=== PATIENT | female | born 1975 | race Caucasian/White ===

== ENCOUNTER 2017-03-22 01:02 | Inpatient (IN) | payer BC ==
[~2017-03-22] VITALS: Ht 175.3 cm; Wt 78.2 kg
[2017-03-22] VITALS (13 sets, daily range): BP systolic 134–165; BP diastolic 85–114; PULSE 82–105; RESP 17–20; TEMP 97.2–99.4; O2SAT 95–99
[~2017-03-22 01:02] MED LIST: LISI10 PO; PANT20 PO; THIA100T PO; TRAM50 PO; ZOFR4TAB3 SL
[2017-03-22] MEDS ORDERED: IOHEXOL 350 MG/ML 10 ML VIAL (for RAD DIAG) IVCONTRAST ONE (01:03)
[2017-03-22] MEDS ORDERED: SODIUM CHLOR 0.9% 1000 ML INJ 1,000 ML IV SCH (01:39)
--- NOTE | 2017-03-22 01:44 | PD ---
HPI Chief Complaint: Abdominal Pain Time Seen by Provider: 01:34 Travel History International Travel<30 days: No Contact w/Intl Traveler<30days: No Traveled to known affect area: No History of Present Illness HPI The patient is a 41-year-old female who has a history of alcoholic pancreatitis who started with nausea and vomiting today. She denies any fever and she denies vomiting any blood. She was drinking 6-8 glasses of vodka daily. She called the [facility] hotline and they told her not to quit cold turkey so she decreased but did not cease the alcohol drinking. She complains of bilateral upper abdominal pain. PFSH Past Medical History Arthritis: Yes Asthma: No Heart Rhythm Problems: No Cancer: No Cardiovascular Problems: No High Cholesterol: No Chest Pain: No Congestive Heart Failure: No COPD: No Cerebrovascular Accident: No Diabetes: No Diminished Hearing: No Endocrine: Yes (pancreatitis) Gastrointestinal Disorders: Yes (pancreatitis) GERD: No Glaucoma: No Genitourinary: No Headaches: Yes Hepatitis: No Hiatal Hernia: No Hypertension: Yes Implanted Vascular Access Dvce: No Kidney Stones: No Musculoskeletal: Yes (herniated discs c6-c7) Neurologic: Yes (nerve damage) Psychiatric: No Reproductive: No Respiratory: Yes (CHRONIC BRONCHITIS) Immunizations Current: Yes Migraines: Yes Myocardial Infarction: No Pancreatitis: Yes Renal Failure: No Seizures: No Sleep Apnea: No Thyroid Disease: No Ulcer: No Tetanus Vaccination: > 5 Years Influenza Vaccination: No ?: Unknown : 1 Para: 1 Past Surgical History Abdominal Surgery: No Appendectomy: No Cardiac Surgery: No Cholecystectomy: No Ear Surgery: No Endocrine Surgery: No Eye Surgery: No Genitourinary Surgery: No Gynecologic Surgery: Yes (hysterectomy) Hysterectomy: Yes Neurologic Surgery: No Oral Surgery: Yes (MOUTH INFECTION) Pacemaker: No Thoracic Surgery: No Other Surgery: Yes Social History Alcohol Use: Yes (3-4 drinks daily) Tobacco Use: Yes (1 PPD) Substance Use: Yes (marijuana once in a while, etoh) Allergies-Medications (Allergen,Severity, Reaction): Coded Allergies: promethazine (Unverified Adverse Reaction, Mild, DOESN'T LIKE THE WAY IT MAKES HER FEEL, 03/22/17) Reported Meds & Prescriptions Reported Meds & Active Scripts Active Zofran ODT (Ondansetron HCl) 4 Mg Tab 4 Mg SL Q6H PRN FOR NAUSEA/VOMITING Vitamin B1 (Thiamine HCl) 100 Mg Tab 100 Mg PO DAILY 30 Days Prinivil 10 mg (Lisinopril) 10 Mg Tab 10 Mg PO DAILY 30 Days Protonix (Pantoprazole Sodium) 20 Mg Tab 20 Mg PO DAILY Ultram (Tramadol HCl) 50 Mg Tab 1 Tab PO Q6HR FOR PAIN Review of Systems Except as stated in HPI: all other systems reviewed are Neg Physical Exam Narrative GENERAL: The patient is alert, oriented 3 in moderate to severe distress with her bilateral upper abdominal pain. Her vital signs show blood pressure 165/97 but otherwise normal. She does appear to be mildly dehydrated. She does not appear to be clinically intoxicated. She answers questions quickly and appropriately. SKIN: Focused skin assessment warm/dry. HEAD: Atraumatic. Normocephalic. EYES: Pupils equal and round. No scleral icterus. No injection or drainage. ENT: No nasal bleeding or discharge. Mucous membranes pink and moist. NECK: Trachea midline. No JVD. CARDIOVASCULAR: Regular rate and rhythm. No murmur appreciated. RESPIRATORY: No accessory muscle use. Clear to auscultation. Breath sounds equal bilaterally. GASTROINTESTINAL: Abdomen soft, non-tender, nondistended. Hepatic and splenic margins not palpable. MUSCULOSKELETAL: No obvious deformities. No clubbing. No cyanosis. No edema. NEUROLOGICAL: Awake and alert. No obvious cranial nerve deficits. Motor grossly within normal limits. Normal speech. PSYCHIATRIC: Appropriate mood and affect; insight and judgment normal. Data Data Last Documented VS Vital Signs Date Time Temp Pulse Resp B/P (MAP) Pulse Ox O2 Delivery O2 Flow Rate FiO2 03/22/17 01:51 99.4 85 20 159/103 (121) 98 Orders Orders Complete Blood Count With Diff (03/22/17 01:39) Comprehensive Metabolic Panel (03/22/17 01:39) Lipase (03/22/17 01:39) Urinalysis - C+S If Indicated (03/22/17 01:39) Ct Abd/Pel W Iv Contrast(Rout) (03/22/17 01:39) Iv Access Insert/Monitor (03/22/17 01:39) Ecg Monitoring (03/22/17 01:39) Oximetry (03/22/17 01:39) Ondansetron Inj (Zofran Inj) (03/22/17 01:45) Sodium Chlor 0.9% 1000 Ml Inj (Ns 1000 M (03/22/17 01:39) Sodium Chloride 0.9% Flush (Ns Flush) (03/22/17 01:45) Electrocardiogram (03/22/17 01:39) Hydromorphone Pf Inj (Dilaudid Pf Inj) (03/22/17 01:45) Pantoprazole Inj (Protonix Inj) (03/22/17 02:00) Famotidine Inj (Pepcid Inj) (03/22/17 02:00) Alcohol (Ethanol) (03/22/17 01:30) Iohexol 350 Inj (Omnipaque 350 Inj) (03/22/17 01:03) Ondansetron Inj (Zofran Inj) (03/22/17 02:30) Metoclopramide Inj (Reglan Inj) (03/22/17 03:00) Labs Laboratory Tests Test 03/22/17 01:30 White Blood Count 7.9 TH/MM3 Red Blood Count 4.47 MIL/MM3 Hemoglobin 13.6 GM/DL Hematocrit 39.2 % Mean Corpuscular Volume 87.6 FL Mean Corpuscular Hemoglobin 30.3 PG Mean Corpuscular Hemoglobin Concent 34.6 % Red Cell Distribution Width 12.5 % Platelet Count 158 TH/MM3 Mean Platelet Volume 7.7 FL Neutrophils (%) (Auto) 74.0 % Lymphocytes (%) (Auto) 17.6 % Monocytes (%) (Auto) 6.9 % Eosinophils (%) (Auto) 0.5 % Basophils (%) (Auto) 1.0 % Neutrophils # (Auto) 5.9 TH/MM3 Lymphocytes # (Auto) 1.4 TH/MM3 Monocytes # (Auto) 0.5 TH/MM3 Eosinophils # (Auto) 0.0 TH/MM3 Basophils # (Auto) 0.1 TH/MM3 CBC Comment DIFF FINAL Differential Comment Blood Urea Nitrogen 11 MG/DL Creatinine 0.76 MG/DL Random Glucose 99 MG/DL Total Protein 7.7 GM/DL Albumin 4.0 GM/DL Calcium Level 8.4 MG/DL Alkaline Phosphatase 63 U/L Aspartate Amino Transf (AST/SGOT) 60 U/L Alanine Aminotransferase (ALT/SGPT) 50 U/L Total Bilirubin 0.9 MG/DL Sodium Level 135 MEQ/L Potassium Level 3.1 MEQ/L Chloride Level 94 MEQ/L Carbon Dioxide Level 27.3 MEQ/L Anion Gap 14 MEQ/L Estimat Glomerular Filtration Rate 84 ML/MIN Lipase 656 U/L Ethyl Alcohol Level 113 MG/DL MDM Medical Decision Making Medical Screen Exam Complete: Yes Emergency Medical Condition: Yes Medical Record Reviewed: Yes Interpretation(s) The complete metabolic profile shows a GFR of 84, calcium 8.4, GOT of 60 with sodium 135, potassium 3.1 but is otherwise normal. The alcohol level is 113. The lipase is 656. The CT abdomen/pelvis with IV contrast shows pancreatic calcifications characteristic of chronic pancreatitis. There is no definite acute pancreatitis noted. There is gallbladder distention and extensive hepatic steatosis similar to prior exam in April 2016. Incidentally noted is a 1.7 cm left adnexal cyst. The CBC is normal. Differential Diagnosis Alcoholic pancreatitis, gallstone pancreatitis, colitis, small bowel obstruction , electrolyte disorder, dehydration, renal insufficiency, anemia Narrative Course Despite 8 mg of Zofran IV and 10 mg of Reglan the patient is still nauseated. It is clear that she cannot be treated at home successfully. The lipase is elevated. Also noted is a distended gallbladder but it is likely that alcohol is a cause of her pancreatitis. She also has a mild hypokalemia. The patient cannot even hold down ice chips. Physician Communication Physician Communication I discussed the patient with Dr. Gutierres, the patient will be admitted to her. Diagnosis Primary Impression: Pancreatitis, alcoholic, acute Additional Impressions: Intractable vomiting with nausea Intractable upper abdominal pain Admitting Information Admitting Physician Requests: Admit Abhi Lagunas MD Mar 22, 2017 01:44
[2017-03-22] MEDS ORDERED: ONDANSETRON HCL 4 MG/2 ML VIAL IVP ONE (01:45)
[2017-03-22] MEDS ORDERED: HYDROmorphone HCL PF 1 MG/ML VIAL IVS ONE (01:45)
[2017-03-22] MEDS ORDERED: SODIUM CHLORIDE 0.9% FLUSH 10 ML FLUSH IV FLUSH PRN ×3 (01:45→10:15)
[2017-03-22 01:49] LABS: AUTOMATED NEUTROPHIL # 5.9 TH/MM3 (1.8-7.7); BASOPHIL # 0.1 TH/MM3 (0-0.2); EOSINOPHIL % 0.5 % (0.0-4.0); HEMATOCRIT 39.2 % (35.0-46.0); HEMO FLAGS DIFF FINAL; LYMPH % 17.6 % (9.0-44.0); LYMPHOCYTE # 1.4 TH/MM3 (1.0-4.8); MEAN CELL VOLUME 87.6 FL (80.0-100.0); MEAN CORPUSCULAR HEMOGLOBIN 30.3 PG (27.0-34.0); MEAN CORPUSCULAR HGB CONC 34.6 % (32.0-36.0); MONO % 6.9 % (0.0-8.0); PLATELET COUNT 158 TH/MM3 (150-450); RED BLOOD COUNT 4.47 MIL/MM3 (4.00-5.30); RED CELL DISTRIBUTION WIDTH 12.5 % (11.6-17.2); WHITE BLOOD COUNT 7.9 TH/MM3 (4.0-11.0)
[2017-03-22 01:55] LABS: CHLORIDE 94 MEQ/L (98-107); POTASSIUM 3.1 MEQ/L (3.5-5.1); SODIUM (NA) 135 MEQ/L (136-145)
[2017-03-22 02:00] LABS: ANION GAP 14 MEQ/L (5-15); BICARBONATE 27.3 MEQ/L (21.0-32.0); BLOOD UREA NITROGEN 11 MG/DL (7-18)
[2017-03-22] MEDS ORDERED: FAMOTIDINE 20 MG/2 ML VIAL IV PUSH ONE (02:00)
[2017-03-22] MEDS ORDERED: PANTOPRAZOLE SODIUM 40 MG VIAL IVP ONE (02:00)
[2017-03-22 02:02] LABS: ALT (GPT) 50 U/L (10-53); AST (GOT) 60 U/L (15-37)
[2017-03-22 02:03] LABS: ALCOHOL 113 MG/DL (0-5); GLOMERULAR FILTRATION RATE 84 ML/MIN (>89)
[2017-03-22 02:04] LABS: TOTAL BILIRUBIN ADULT 0.9 MG/DL (0.2-1.0)
[2017-03-22 02:05] LABS: ALKALINE PHOSPHATASE 63 U/L (45-117)
[2017-03-22] MEDS ORDERED: ONDANSETRON HCL 4 MG/2 ML VIAL IV ONE (02:30)
--- NOTE | 2017-03-22 02:36 | RADRPT ---
EXAM DATE/TIME: 03/22/2017 02:22 [facility] COMPARISON: No previous studies available for comparison. INDICATIONS : Abdominal pain with nausea and vomiting. IV CONTRAST: 100 cc Omnipaque 350 (iohexol) IV ORAL CONTRAST: No oral contrast ingested. RADIATION DOSE: 12.06 CTDIvol (mGy) MEDICAL HISTORY : Pancreatitis. Hypertension. SURGICAL HISTORY : Hysterectomy. ENCOUNTER: Initial ACUITY: 1 day PAIN SCALE: 8/10 LOCATION: abdomen TECHNIQUE: Volumetric scanning of the abdomen and pelvis was performed. Using automated exposure control and ad justment of the mA and/or kV according to patient size, radiation dose was kept as low as reasonably achievable to obtain optimal diagnostic quality images. DICOM format image data is available electro nically for review and comparison. FINDINGS: Lung bases are clear. There is diffuse fatty infiltration of the liver. Spleen, adrenals, kidneys unr emarkable. Pancreatic calcifications are present characteristic of chronic pancreatitis. No definite acute inflammatory changes are seen No free fluid or free air. No bowel obstruction. 1.7 cm left ovarian cyst. CONCLUSION: 1. Pancreatic calcification characteristic of chronic pancreatitis. No definite acute pancreatitis. T here is gallbladder distention and extensive hepatic steatosis similar to prior examination in Octobe r 2016. 2. 1.7 cm left adnexal cyst.. Larry Jones MD on March 22, 2017 at 2:32 Board Certified Radiologist. This report was verified electronically.
[2017-03-22] MEDS ORDERED: METOCLOPRAMIDE HCL 10 MG/2 ML VIAL IVS ONE (03:00)
[2017-03-22] MEDS ORDERED: NALOXONE HCL 0.4 MG/ML AMP IV PRN (03:00)
[2017-03-22 03:21] LABS: BLOOD, URINE TRACE (NEG); GLUCOSE,URINE NEG (NEG); KETONE, URINE 80 OR GREATER mg/dL (NEG); NITRITE,URINE NEG (NEG); PH, URINE 7.5 (5.0-8.5)
[2017-03-22 03:24] LABS: URINE COLOR YELLOW (YELLW/STRAW)
[2017-03-22 03:26] LABS: COMMENT (UR) CULT NOT INDICATED; CULTURE IF INDICATED CULT NOT INDICATED; RBC, URINE 0-3 /hpf (0-3); WBC, URINE 0-2 /hpf (0-5)
[2017-03-22] MEDS: POTASSIUM CHLOR 20 MEQ PREMIX 100 ML IV SCH ×2 (03:34→05:37)
[2017-03-22] MEDS: NS + KCL 40 MEQ INJ 1,000 ML IV SCH ×2 (03:34→12:07)
[2017-03-22] MEDS: HYDROmorphone HCL PF 1 MG/ML VIAL IV PUSH PRN ×2 (04:17→09:18)
[2017-03-22] MEDS ORDERED: FLUMAZENIL 0.5 MG/5 ML VIAL IV PUSH PRN (05:15)
[2017-03-22] MEDS ORDERED: LORazepam 2 MG TAB PO PRN (05:15)
[2017-03-22] MEDS ORDERED: LORazepam 2 MG/ML VIAL IV PUSH PRN ×3 (05:15)
[2017-03-22] MEDS ORDERED: LORazepam 1 MG TAB PO PRN (05:15)
[2017-03-22] MEDS: LORazepam 2 MG/ML VIAL IV PUSH PRN ×4 (05:37→21:30)
[2017-03-22] MEDS: PROCHLORPERAZINE INJ 10 MG/2 ML VIAL IV PUSH PRN ×3 (05:37→14:46)
--- NOTE | 2017-03-22 08:20 | EKG ---
Date Performed: 03/22/2017 Time Performed: 01:48:25 PTAGE: 41 years EKG: Sinus rhythm PROLONGED QT INTERVAL ABNORMAL ECG PREVIOUS TRACING : 05/11/2016 23.07 No significant change from previous tracing noted. DOCTOR: Torsten Santiago Interpretating Date/Time 03/22/2017 08:18:55
[2017-03-22] MEDS ORDERED: SODIUM CHLORIDE 0.9% FLUSH 10 ML FLUSH IV FLUSH SCH (09:00)
[2017-03-22] MEDS ORDERED: hydrALAZINE HCL 20 MG/ML VIAL IV PRN (10:00)
[2017-03-22] MEDS ORDERED: cloNIDine HCL 0.1 MG TAB PO PRN (10:00)
[2017-03-22] MEDS ORDERED: MAGNESIUM HYDROXIDE SUSP 30 ML CUP PO PRN (10:15)
[2017-03-22] MEDS ORDERED: ACETAMINOPHEN 325 MG TAB PO PRN ×2 (10:15)
[2017-03-22] MEDS ORDERED: KETOROLAC TROMETHAMINE 30 MG/ML (IVP) VIAL IVP PRN ×2 (10:15)
[2017-03-22] MEDS ORDERED: LACTULOSE SYRUP 20 GM/30 ML CUP PO PRN (10:15)
[2017-03-22] MEDS ORDERED: HYDROmorphone HCL PF 1 MG/ML VIAL IV PRN (10:15)
[2017-03-22] MEDS ORDERED: HYDROmorphone HCL 2 MG TAB PO PRN (10:15)
[2017-03-22] MEDS ORDERED: SENNOSIDES 8.6 MG TAB PO PRN (10:15)
[2017-03-22] MEDS ORDERED: BISACODYL 10 MG SUPP RECTAL PRN (10:15)
--- NOTE | 2017-03-22 11:39 | HHI.HP ---
HPI [facility] Primary Care Physician No Primary Care Physician Admission Diagnosis alcoholic pancreatitis, intractable vomiting/abdominal pain Diagnoses: Chief Complaint: Abdominal pain, nausea and vomiting Travel History International Travel<30 Days: No Contact w/Intl Traveler <30 Da: No Traveled to Known Affected Are: No History of Present Illness This is a 41-year-old female with a history of arthritis, hypertension and alcoholic pancreatitis. She presents to the emergency department complaining of nausea, vomiting and abdominal pain for the past 2 days. She states she is not able to keep anything down. No hematemesis. Also reports of constant moderate burning upper abdominal pain worse with meat intake and activity. No radiation of pain, fever, chills, UTI symptoms, constipation and diarrhea. Noted concentrated urine. Admits to drinking 6-8 glasses of vodka daily to medicate her arthritic pain. She thinks she may have rheumatoid arthritis which runs in the family. She already contacted her insurance to assist with her alcohol rehab. At this time, she feels better with nausea and pain after receiving antiemetics and analgesic. She is requesting food. All other systems reviewed negative Review of Systems Except as stated in HPI: all other systems reviewed are Neg Past Family Social History Past Medical History As previously mentioned Past Surgical History Hysterectomy Reported Medications None Allergies: Coded Allergies: promethazine (Unverified Adverse Reaction, Mild, DOESN'T LIKE THE WAY IT MAKES HER FEEL, 03/22/17) Family History Alcoholism Social History Quit tobacco 6 cigarettes [id number] history Physical Exam Vital Signs Vital Signs Date Time Temp Pulse Resp B/P (MAP) Pulse Ox O2 Delivery O2 Flow Rate FiO2 03/22/17 08:00 99.1 105 17 144/99 (114) 95 03/22/17 05:16 87 03/22/17 04:47 83 20 137/85 (102) 98 03/22/17 04:30 97.9 85 20 152/111 (125) 96 03/22/17 03:20 82 20 160/98 (118) 99 03/22/17 01:51 99.4 85 20 159/103 (121) 98 03/22/17 01:46 20 03/22/17 01:13 98.5 99 20 165/97 (941) 96 Physical Exam GENERAL: This is a well-nourished, well-developed patient, in no apparent distress. SKIN: No rashes, ecchymoses or lesions. Cool and dry. HEAD: Atraumatic. Normocephalic. No temporal or scalp tenderness. EYES: Pupils equal round and reactive. Extraocular motions intact. No scleral icterus. No injection or drainage. ENT: Nose without bleeding, purulent drainage or septal hematoma. Throat without erythema, tonsillar hypertrophy or exudate. Uvula midline. Airway patent. NECK: Trachea midline. No JVD or lymphadenopathy. Supple, nontender, no meningeal signs. CARDIOVASCULAR: Regular rate and rhythm without murmurs, gallops, or rubs. RESPIRATORY: Clear to auscultation. Breath sounds equal bilaterally. No wheezes , rales, or rhonchi. GASTROINTESTINAL: Abdomen soft, tender upper abdominal, nondistended. No guarding. MUSCULOSKELETAL: Extremities without clubbing, cyanosis, or edema. No joint tenderness, effusion, or edema noted. No calf tenderness. Negative Homans sign bilaterally. NEUROLOGICAL: Awake and alert. Cranial nerves II through XII intact. Motor and sensory grossly within normal limits. Five out of 5 muscle strength in all muscle groups. Normal speech. Laboratory Laboratory Tests Test 03/22/17 01:30 03/22/17 03:12 White Blood Count 7.9 Red Blood Count 4.47 Hemoglobin 13.6 Hematocrit 39.2 Mean Corpuscular Volume 87.6 Mean Corpuscular Hemoglobin 30.3 Mean Corpuscular Hemoglobin Concent 34.6 Red Cell Distribution Width 12.5 Platelet Count 158 Mean Platelet Volume 7.7 Neutrophils (%) (Auto) 74.0 Lymphocytes (%) (Auto) 17.6 Monocytes (%) (Auto) 6.9 Eosinophils (%) (Auto) 0.5 Basophils (%) (Auto) 1.0 Neutrophils # (Auto) 5.9 Lymphocytes # (Auto) 1.4 Monocytes # (Auto) 0.5 Eosinophils # (Auto) 0.0 Basophils # (Auto) 0.1 CBC Comment DIFF FINAL Differential Comment Blood Urea Nitrogen 11 Creatinine 0.76 Random Glucose 99 Total Protein 7.7 Albumin 4.0 Calcium Level 8.4 Alkaline Phosphatase 63 Aspartate Amino Transf (AST/SGOT) 60 Alanine Aminotransferase (ALT/SGPT) 50 Total Bilirubin 0.9 Sodium Level 135 Potassium Level 3.1 Chloride Level 94 Carbon Dioxide Level 27.3 Anion Gap 14 Estimat Glomerular Filtration Rate 84 Lipase 656 Ethyl Alcohol Level 113 Urine Color YELLOW Urine Turbidity CLEAR Urine pH 7.5 Urine Specific [place] GREATER THAN 1.035 Urine Protein TRACE Urine Glucose (UA) NEG Urine Ketones 80 OR GREATER Urine Occult Blood TRACE Urine Nitrite NEG Urine Bilirubin NEG Urine Leukocyte Esterase NEG Urine RBC 0-3 Urine WBC 0-2 Urine Squamous Epithelial Cells 6-8 Urine Bacteria NONE Microscopic Urinalysis Comment CULT NOT INDICATED Result Diagram: 03/22/1712903/22/17129 Imaging Last Impressions Abdomen/Pelvis CT 03/22/17138 Signed Impressions: Service Date/Time: , March 22, 2017 02:22 - CONCLUSION: 1. Pancreatic calcification characteristic of chronic pancreatitis. No definite acute pancreatitis. There is gallbladder distention and extensive hepatic steatosis similar to prior examination in April 2016. 2. 1.7 cm left adnexal cyst.. Larry Jones MD Caprini VTE Risk Assessment Caprini VTE Risk Assessment: No/Low Risk (score <= 1) Caprini Risk Assessment Model Point Value = 1 Point Value = 2 Point Value = 3 Point Value = 5 Age 41-60 Minor surgery BMI > 25 kg/m2 Swollen legs Varicose veins or History of unexplained or recurrent spontaneous Oral contraceptives or hormone replacement Sepsis (< 1 month) Serious lung disease, including pneumonia (< 1 month) Abnormal pulmonary function Acute myocardial infarction Congestive heart failure (< 1 month) History of inflammatory bowel disease Medical patient at bed rest Age 61-74 Arthroscopic surgery Major open surgery (> 45 min) Laparoscopic surgery (> 45 min) Malignancy Confined to bed (> 72 hours) Immobilizing plaster cast Central venous access Age >= 75 History of VTE Family history of VTE Factor V Leiden Prothrombin [id number] Lupus anticoagulant Anticardiolipin antibodies Elevated serum homocysteine Heparin-induced thrombocytopenia Other congenital or acquired thrombophilia Stroke (< 1 month) Elective arthroplasty Hip, pelvis, or leg fracture Acute spinal cord injury (< 1 month) Prophylaxis Regimen Total Risk Factor Score Risk Level Prophylaxis Regimen 0-1 Low Early ambulation 2 Moderate Order ONE of the following: *Sequential Compression Device (SCD) *Heparin 5000 units SQ BID 3-4 Higher Order ONE of the following medications: *Heparin 5000 units SQ TID *Enoxaparin/Lovenox 40 mg SQ daily (WT < 150 kg, CrCl > 30 mL/min) *Enoxaparin/Lovenox 30 mg SQ daily (WT < 150 kg, CrCl > 10-29 mL/min) *Enoxaparin/Lovenox 30 mg SQ BID (WT < 150 kg, CrCl > 30 mL/min) AND/OR *Sequential Compression Device (SCD) 5 or more Highest Order ONE of the following medications: *Heparin 5000 units SQ TID (Preferred with Epidurals) *Enoxaparin/Lovenox 40 mg SQ daily (WT < 150 kg, CrCl > 30 mL/min) *Enoxaparin/Lovenox 30 mg SQ daily (WT < 150 kg, CrCl > 10-29 mL/min) *Enoxaparin/Lovenox 30 mg SQ BID (WT < 150 kg, CrCl > 30 mL/min) AND *Sequential Compression Device (SCD) Assessment and Plan Problem List: (1) Pancreatitis, alcoholic, acute ICD Code: K85.2 - Alcohol induced acute pancreatitis Status: Acute (2) Intractable upper abdominal pain ICD Code: R10.10 - Upper abdominal pain, unspecified Status: Acute (3) Intractable vomiting with nausea ICD Code: R11.2 - Nausea with vomiting, unspecified Status: Acute Assessment and Plan This is a 41-year-old female with a history of arthritis, hypertension and alcoholic pancreatitis. She presents to the emergency department complaining of nausea, vomiting and abdominal pain for the past 2 days. She states she is not able to keep anything down. No hematemesis. Also reports of constant moderate burning upper abdominal pain worse with meat intake and activity. No radiation of pain, fever, chills, UTI symptoms, constipation and diarrhea. Noted concentrated urine. Admits to drinking 6-8 glasses of vodka daily Alcoholic pancreatitis. Continue supportive treatment with IV hydration, pain management with Lortab and IV morphine counseled regarding narcotics and GI prophylaxis with PPI. She has been counseled regarding alcohol use. [facility] protocol. States she'll be going straight to rehabilitation after discharge. CT of the abdomen shows gallbladder distention and extensive hepatic steatosis similar to prior examination. Patient to follow-up with general surgery outpatient Elevated AST likely secondary to alcohol use. Monitor Hypokalemia. Patient received 40 mg IV potassium. Check magnesium and replace accordingly. Repeat BMP and magnesium today and tomorrow Prolonged QT. Monitor on telemetry. Aggressive electrolyte replacement Uncontrolled hypertension secondary to pain. Monitor with antihypertensives Arthritic pain. Outpatient follow-up Low risk for DVT Discussed Condition With Patient Maynor Sauceda MD Mar 22, 2017 11:39
[2017-03-22] MEDS: PANTOPRAZOLE SODIUM 40 MG VIAL IV PUSH SCH (11:58)
[2017-03-22] MEDS: HYDROmorphone HCL 2 MG TAB PO PRN ×3 (12:07→21:13)
[2017-03-22] MEDS: ONDANSETRON HCL 4 MG/2 ML VIAL IVP PRN ×2 (12:09→21:13)
[2017-03-22 12:13] LABS: MAGNESIUM 1.7 MG/DL (1.5-2.5); POTASSIUM 4.3 MEQ/L (3.5-5.1)
[2017-03-22 12:32] LABS: CALCIUM-PROTEIN CORRECTED 7.6 MG/DL (8.5-10.1)
[2017-03-22] MEDS ORDERED: DILA2TAB2 PO (17:39)
--- NOTE | 2017-03-22 17:39 | HHI.DCPOC ---
Discharge Care Plan Diagnosis: (1) Pancreatitis, alcoholic, acute Your Health Problems Are: Difficulty with ADL Exercise Tolerance Goals to Promote Your Health * To prevent worsening of your condition and complications * To maintain your health at the optimal level Directions to Meet Your Goals Take your medications as prescribed Follow your dietary instruction Follow activity as directed Keep your appointments as scheduled Take your immunizations and boosters as scheduled If your symptoms worsen call your PCP, if no PCP go to Urgent Care Center or Emergency Room Smoking is Dangerous to Your Health. Avoid second hand smoke Call the 24-hour hour crisis hotline for domestic abuse at Maynor Sauceda MD Mar 22, 2017 17:39
[2017-03-22] MEDS: DOCUSATE SODIUM 50 MG/SENNA 8.6 MG TAB PO SCH (21:13)
[2017-03-22] MEDS: SODIUM CHLORIDE 0.9% FLUSH 10 ML FLUSH IV FLUSH SCH (21:14)
[2017-03-23] VITALS: BP 149/104; PULSE 84; RESP 20; TEMP 98.5; O2SAT 97
[2017-03-23] MEDS: LORazepam 2 MG/ML VIAL IV PUSH PRN ×2 (02:30→07:30)
[2017-03-23] MEDS: NS + KCL 40 MEQ INJ 1,000 ML IV SCH (02:30)
[2017-03-23] MEDS: PROCHLORPERAZINE INJ 10 MG/2 ML VIAL IV PUSH PRN (02:30)
[2017-03-23] MEDS: HYDROmorphone HCL 2 MG TAB PO PRN ×3 (02:31→11:49)
[2017-03-23 04:00] VITALS: BP 146/106; PULSE 82; RESP 20; TEMP 97.7; O2SAT 96
[2017-03-23 06:58] LABS: BASOPHIL % 0.2 % (0.0-2.0); EOSINOPHIL # 0.1 TH/MM3 (0-0.4); EOSINOPHIL % 2.3 % (0.0-4.0); HEMATOCRIT 36.2 % (35.0-46.0); LYMPH % 25.1 % (9.0-44.0); LYMPHOCYTE # 1.5 TH/MM3 (1.0-4.8); MEAN CELL VOLUME 88.9 FL (80.0-100.0); MEAN CORPUSCULAR HEMOGLOBIN 30.6 PG (27.0-34.0); MEAN CORPUSCULAR HGB CONC 34.4 % (32.0-36.0); MONO % 7.9 % (0.0-8.0); NEUT % 64.5 % (16.0-70.0); PLATELET COUNT 99 TH/MM3 (150-450); RED BLOOD COUNT 4.07 MIL/MM3 (4.00-5.30); RED CELL DISTRIBUTION WIDTH 12.8 % (11.6-17.2); WHITE BLOOD COUNT 6.1 TH/MM3 (4.0-11.0)
[2017-03-23 07:07] LABS: HEMO FLAGS DIFF FINAL
[2017-03-23 07:25] LABS: POTASSIUM 3.7 MEQ/L (3.5-5.1)
[2017-03-23] MEDS: DOCUSATE SODIUM 50 MG/SENNA 8.6 MG TAB PO SCH (07:31)
[2017-03-23] MEDS: ONDANSETRON HCL 4 MG/2 ML VIAL IVP PRN (07:40)
[2017-03-23 07:44] LABS: BICARBONATE 25.5 MEQ/L (21.0-32.0); CALCIUM-PROTEIN CORRECTED 7.7 MG/DL (8.5-10.1); TOTAL BILIRUBIN ADULT 0.9 MG/DL (0.2-1.0)
[2017-03-23 08:00] VITALS: BP 16/100; PULSE 87; PULSE 94; RESP 20; TEMP 96.4; O2SAT 93
[2017-03-23 08:18] VITALS: O2SAT 96
[2017-03-23] MEDS ORDERED: THIAMINE HCL 100 MG TAB PO SCH (09:00)
[2017-03-23] MEDS ORDERED: FOLIC ACID 1 MG TAB PO SCH (09:00)
[2017-03-23] MEDS ORDERED: MULTIVITAMINS/MINERALS THERAPEUTIC TAB PO SCH (09:00)
[2017-03-23] MEDS: SODIUM CHLORIDE 0.9% FLUSH 10 ML FLUSH IV FLUSH SCH (09:00)
[2017-03-23] MEDS ORDERED: cloNIDine HCL 0.1 MG TAB PO SCH (10:15)
[2017-03-23] MEDS ORDERED: LISINOPRIL 10 MG TAB PO SCH (11:00)
--- NOTE | 2017-03-23 11:39 | HHI.PR ---
Subjective Remarks Follow-up pancreatitis. Improved nausea and abdominal pain. Tolerating liquid diet in small amounts. She wants to be discharged today to detox/alcohol rehabilitation. Discussed with RN and case management Objective Vitals Vital Signs Date Time Temp Pulse Resp B/P (MAP) Pulse Ox O2 Delivery O2 Flow Rate FiO2 03/23/17 08:18 96 21 03/23/17 08:00 96.4 94 20 16/100 (72) 93 03/23/17 04:00 97.7 82 20 146/106 (119) 96 03/23/17 00:00 98.5 84 20 149/104 (119) 97 03/22/17 21:13 85 03/22/17 20:23 96 21 03/22/17 20:00 97.2 89 20 144/104 (117) 97 03/22/17 16:00 96 21 03/22/17 16:00 98.6 103 17 150/114 (126) 96 03/22/17 12:00 98.7 99 18 134/89 (104) 96 I/O 03/22/17 03/22/17 03/22/17 03/23/17 03/23/17 03/23/17 07:00 15:00 23:00 07:00 15:00 23:00 Intake Total 1184 ml 1034 ml 1529 ml 1726 ml Output Total 450 ml Balance 734 ml 1034 ml 1529 ml 1726 ml Intake Oral 0 ml 0 ml 420 ml IV Total 1184 ml 1034 ml 1529 ml 1306 ml Output Urine Total 450 ml # Voids 1 2 # Bowel Movements 0 Result Diagram: 03/23/17 0555 03/23/17 0555 Imaging Last Impressions Abdomen/Pelvis CT 03/22/17 0139 Signed Impressions: Service Date/Time: February 02:22 - CONCLUSION: 1. Pancreatic calcification characteristic of chronic pancreatitis. No definite acute pancreatitis. There is gallbladder distention and extensive hepatic steatosis similar to prior examination in April 2016. 2. 1.7 cm left adnexal cyst.. Larry Jones MD Objective Remarks Well-developed, well-nourished in no distress Pupils equally reactive to light no jaundice No JVD. No bruit equal expansion clear to auscultation Regular rate and rhythm Abdomen soft tender epigastric and right upper quadrant areas Extremities no edema and ecchymosis Alert and oriented nonfocal with mild tremors. No hallucinations Procedures none A/P Problem List: (1) Pancreatitis, alcoholic, acute ICD Code: K85.2 - Alcohol induced acute pancreatitis Status: Acute (2) Intractable upper abdominal pain ICD Code: R10.10 - Upper abdominal pain, unspecified Status: Acute (3) Intractable vomiting with nausea ICD Code: R11.2 - Nausea with vomiting, unspecified Status: Acute Assessment and Plan This is a 41-year-old female with a history of arthritis, hypertension and alcoholic pancreatitis. She presents to the emergency department complaining of nausea, vomiting and abdominal pain for the past 2 days. She states she is not able to keep anything down. No hematemesis. Also reports of constant moderate burning upper abdominal pain worse with meat intake and activity. No radiation of pain, fever, chills, UTI symptoms, constipation and diarrhea. Noted concentrated urine. Admits to drinking 6-8 glasses of vodka daily Alcoholic pancreatitis. Improving lipase down to 412 Continue supportive treatment with hydration, pain management with Dilaudid and IV morphine counseled regarding narcotics and GI prophylaxis with PPI. She has been counseled regarding alcohol use. [facility] protocol. States she'll be discharged to rehabilitation. CT of the abdomen shows gallbladder distention and extensive hepatic steatosis similar to prior examination. Patient to follow-up with general surgery outpatient Thrombocytopenia likely secondary to alcohol. Outpatient follow-up Elevated AST likely secondary to alcohol use. Monitor Hypokalemia. Improved status post replacement Prolonged QT. Monitor on telemetry. Aggressive electrolyte replacement Uncontrolled hypertension secondary to pain. Restart lisinopril. Monitor with antihypertensives Arthritic pain. Outpatient follow-up Low risk for DVT Discharge Planning Discharge patient to home Condition on discharge: Improved Regular Diet as tolerated Ad Lynnette activity no driving Rx written: dilaudid, ativan, protonix, lisinopril and thiamine Follow-up with primary care physician in 1week I spent 35 minutes [id number] with the patient or on the [facility] discussing the patient's disposition, prognosis, and plan of care with patient's caregivers. Over half the time spent was devoted to counseling the patient regarding placement in coordinating care with caregivers and case management. Maynor Sauceda MD Mar 23, 2017 11:39
[2017-03-23] MEDS: PANTOPRAZOLE SODIUM 40 MG VIAL IV PUSH SCH (11:48)
[2017-03-23] MEDS ORDERED: LORA-474 PO (12:17)
[2017-03-23] MEDS ORDERED: GNP100TA3 PO ×2 (12:17→14:00)
[2017-03-23] MEDS ORDERED: LISI10TA3 PO ×2 (12:17→14:00)
[2017-03-23] MEDS ORDERED: PANT20 PO ×2 (12:17→14:00)
[2017-03-23 12:41] VITALS: RESP 20
--- NOTE | 2017-03-29 13:08 | PQ ---
Physician Query Response Document PATIENT: EDE HALL : 1975 ADMIT DATE: 03/22/2017 10:13 AM DISCH DATE: 03/23/2017 2:16 PM RESPONDING PROVIDER #: Addy QUERY TEXT: Substance Use Please clarify the pattern of use and associated manifestations of patient's substance usage. Pattern of use, include all that apply: -- Abuse -- Dependence -- Remission -- Use only Any associated manifestations: -- Intoxication with delirium -- Intoxication without delirium -- Other manifestation such as mood disorder, psychotic disorder, organ involvement (please specify) If you have any additional questions/comments and/or concerns, please do not hesitate to reach out to the [facility]/Coding Hotline, Ext. [phone]. The patient's Clinical Indicators include: Patient admitted with acute alcoholic pancreatitis. H BAL on admission 113. ED report - Social History : Alcohol Use: Yes (3-4 drinks daily) History of Present Illness: She called the [facility] hotline and they told her not to quit cold turkey so she decreased but did not cease the alcohol drinking. Progress note 03/23/17-Subjective: She wants to be discharged today to detox/alcohol rehabilitation. Family history of alcoholism. Query created by: Britney Becerra on 03/26/2017 11:58 AM RESPONSE TEXT: Alcohol abuse and dependence Electronically signed by: Maynor Sauceda MD 03/26/2017 2:58 PM
== END 2017-03-23 14:16 | disposition home or self-care (01) | DRG 439 ==
LOC: PHED 01:02 → PHEDA 02:58 → INTOOBSV 02:58 → PH3B 04:22 → OBSVTOIN 10:13
PROVIDERS: ADMIT Internal Medicine; ATTEND Internal Medicine
DX: K85.20 Alcohol induced acute pancreatitis without necrosis or infection (principal); F10.288 Alcohol dependence with other alcohol-induced disorder; D69.59 Other secondary thrombocytopenia; K76.0 Fatty (change of) liver, not elsewhere classified; Y90.5 Blood alcohol level of 100-119 mg/100 ml; Z63.72 Alcoholism and drug addiction in family; I10 Essential (primary) hypertension; M19.90 Unspecified osteoarthritis, unspecified site; E87.6 Hypokalemia; Z87.891 Personal history of nicotine dependence
CPT/HCPCS: 74177; 80048; 80053; 80307; 81001; 83690; 83735; 84155; 85025; 93005; 96361; 96374; 96375; C9113; J0780; J1170; J2060; J2405; J2765; J3480; J7030; Q9967